=== PATIENT | male | born 2005 | race African-American/Black ===

== ENCOUNTER 2023-08-22 13:43 | Outpatient (REF) | payer OTHER, SELFPAY ==
--- NOTE | ~2023-08-22 | MR_ITS ---
EXAMINATION: MRI WRIST WITHOUT CONTRAST, LEFT CLINICAL INFORMATION: Injury. COMPARISON: None. TECHNIQUE: MRI without contrast is performed on the left wrist and hand including the metacarpals. FINDINGS: There is marrow edema of the 1st metacarpal head likely representing a contusion with no discrete fracture. Trace MCP joint effusion. Surrounding soft tissue edema with edema at the volar aspect of the metacarpal head, proximal to the sesamoids which may represent a capsular injury. Imaging planes are not tailored to assess the collateral ligaments although no definite tear. Flexor and extensor tendons appear intact. The scapholunate and lunotriquetral ligaments appear intact. Degenerative cyst and penetrating vessel within the central capitate. No joint effusions. The triangular fibrocartilage complex is intact. Ulnar negative variance. The carpal tunnel, flexor and extensor tendons are unremarkable. MR/MR wrist LT wo con IMPRESSION: Marrow edema of the 1st metacarpal head likely representing a contusion with no discrete fracture. Surrounding soft tissue edema with edema at the volar aspect of the metacarpal head, proximal to the sesamoids which may represent a capsular injury. Imaging planes are not tailored to assess the collateral ligaments although no definite tear. Flexor and extensor tendons appear intact. Intrinsic ligaments and TFCC are intact.
== END 2023-08-22 13:44 | disposition home or self-care (01) ==
LOC: HO.MRI 13:43
PROVIDERS: Visit Provider Student in an Organized Health Care Education/Training Program
DX: M25.332 Other instability, left wrist (principal); M79.645 Pain in left finger(s)
CPT/HCPCS: 73221